=== PATIENT | female | born 1975 | race Caucasian/White ===

== ENCOUNTER 2024-04-08 14:50 | Outpatient (AMB) | payer BC, SELFPAY ==
--- NOTE | 2024-04-08 15:01 | MHC.OFFVIS ---
Vital Signs 04/08/24 15:03 Height 5 ft 3 in Weight 143 lb 4.807 oz BMI 25.4 BP 110/70 Blood Pressure Location Rt brachial Position Sitting Pulse 56 Pulse Source Pulse Oximeter Pulse Oximetry (%) 99 Oxygen Delivery Method Room Air Intake Visit Reasons: + FRANTZ/CM Intake Note: Patient present today for +FARNTZ/CM follow up visit. Resident Care Manager Rn Required: No Accompanied by: Self / Same As Patient Allergies No Known Allergies Allergy (Verified 04/08/24 15:07) Medication List - Last Reconciled 04/08/24 by Giulia Taylor MD naproxen sodium (Aleve) 220 mg PO BID PRN HPI Comments Details: This is a 48-year-old female who presents for evaluation of psoriatic arthritis. She used to follow-up at the [facility]. Patient states that she was diagnosed with psoriasis in childhood. She states that she treats it with regular tanning about 4 months a year. This has worked out pretty well for her. She continues to get intermittent flare-ups of psoriasis on her scalp and ears but overall has been very well controlled. She was diagnosed with psoriatic arthritis around 2018. Usually affecting her fingers and toes. He was started on methotrexate for approximately 3 months, was not helpful. She would also get intermittent courses of prednisone. She was tried again on methotrexate 06/2023 for 2 months without much relief. She also took hydroxychloroquine time in 2021 for about a month without much improvement. Her pains are located in her fingers and toes. She saw a spar machine operator helper a few months ago and had left 5th toe injection which did provide relief. Currently she takes Aleve twice a day. She is unaware of any family history of an autoimmune rheumatic disease. She denies any weight loss or fevers recently. Denies any history of cancer. Denies any history of DVT/PE. [facility] Medical History (Updated 04/08/24 @ 16:18 by Giulia Taylor MD) FRANTZ positive Psoriasis Lumbar degenerative disc disease Migraines Anxiety and depression Psoriatic arthritis Pain in joint, multiple sites Family History Mother Dementia Father Heart attack Social History Current occupational status: employed Current occupation: freelance photographer [employer] Female Reproductive History Menstrual Total pregnancies: 3 Number of Living Children: 3 Ab induced: 0 Ab spontaneous: 0 Review of Systems Const Denies fever(s), Denies weight gain and Denies weight loss ENT Denies neck pain Resp Reports no additional complaints Musc Denies back pain, Reports deformity, Reports arthralgias, Reports joint swelling, Denies neck pain and Reports stiffness Physical Exam Vital Signs: Last Vital Signs Pulse 56 04/08/24 15:03 BP 110/70 04/08/24 15:03 Pulse Ox 99 04/08/24 15:03 Oxygen Delivery Method Room Air 04/08/24 15:03 BMI result Body Mass Index 25.4 Const General: cooperative, healthy appearing, comfortable and no acute distress Nutritional Appearance: average body habitus Orientation/consciousness: patient oriented x3 Limitations: no limitations HEENT Head: Yes normocephalic and Yes atraumatic Mouth: moist mucous membranes Resp Effort & Inspection: normal respiratory effort and able to speak in complete sentences Auscultation: clear to auscultation bilaterally Cardio Rate: regular rate Rhythm: regular rhythm Skin Other: Faint psoriasis scaly plaques inside the right ear Neuro General: patient oriented x3 Extrem Other: Left 2nd finger dactylitis, tender to palpation especially at the DIP Right 4th finger significant PIP swelling and tenderness Right big toe dactylitis, tender to palpation Left 5th toe dactylitis tender to palpation Negative straight leg raise test bilaterally Negative Fabere test bilaterally No active synovitis otherwise Results Reviewed Results Reviewed: Labs 07/2023? Hepatitis-B core antibody negative? Hepatitis-B surface antibody positive (immune) Hepatitis-B surface antigen negative? Hepatitis-C antibody negative Psoriatic arthropathy MTX 2018 H CQ 2021 Assessment & Plan Assessment & Plan (1) Psoriatic arthritis: Comment: 2017 MTX 2018 for 3 months ineffective again 06/2023 2 months ineffective HCQ 2021 about 1 month ineffective Code(s): L40.50 - Arthropathic psoriasis, unspecified Category: Medical Plan: This is a 48-year-old female with psoriatic arthritis who presents as a new patient. She used to follow-up at the [facility]. Patient failed methotrexate and hydroxychloroquine in the past. She is currently on naproxen 220 mg Twice daily and continues to have significant synovitis multiple swollen joints with dactylitis and sausage digits. Need to add DMARDs. Discussed risks and benefits of TNF inhibitors. Patient agreed to proceed. Will start prior authorization for Humira Check labs and x-rays of involved joints today Follow-up in 3 months (2) Adalimumab (Humira) long-term use: Code(s): Z79.620 - jail (current) use of immunosuppressive biologic Category: Medical Plan: Side effects of Humira were discussed with the patient in detail including increased risk of infection, demyelinating disease, reactivation of latent TB, possible increased risk of solid and skin tumors. Patient fully aware. Advised patient to seek medical care PAUL if patient has an infection and advised patient to stop the medication until the infection is resolved. (3) FRANTZ positive: Code(s): R76.8 - Other specified abnormal immunological findings in serum Category: Medical Plan: Check further sub serologies (4) Psoriasis: Comment: childhood Code(s): L40.9 - Psoriasis, unspecified Category: Medical Plan: Only minimal patches on exam. Treatment for psoriatic arthritis should help her psoriasis as well Plan I spent 60 minutes reviewing patient's chart, evaluating patient, ordering diagnostic workup, counseling patient and documenting in the chart Orders: Orders Complete Blood Count Auto Diff Today L40.50 - Arthropathic psoriasis, unspecified Comprehensive Met. Panel Today L40.50 - Arthropathic psoriasis, unspecified C Reactive Protein Today L40.50 - Arthropathic psoriasis, unspecified Erythrocyte Sedimentation Rate Today L40.50 - Arthropathic psoriasis, unspecified Rheumatoid Factor Today M25.50 - Pain in unspecified joint Anti DNA DS Antibody Today M32.9 - Systemic lupus erythematosus, unspecified DNA Double Stranded-Crithidia Today M32.9 - Systemic lupus erythematosus, unspecified UA w Microscopic Today M32.9 - Systemic lupus erythematosus, unspecified XR foot RT min 3V Today L40.50 - Arthropathic psoriasis, unspecified XR foot LT min 3V Today L40.50 - Arthropathic psoriasis, unspecified Hepatitis A,B,C Profile Today Z11.59 - Encounter for screening for other viral diseases T Spot TB Today Z11.7 - Encounter for testing for latent tuberculosis infection HLA B27 Today M45.9 - Ankylosing spondylitis of unspecified sites in spine Cyclic Citrullinated Peptide Today M25.50 - Pain in unspecified joint Anti Extractable Nuclear Ag Today M32.9 - Systemic lupus erythematosus, unspecified Complement C3 Today M32.9 - Systemic lupus erythematosus, unspecified Complement C4 Today M32.9 - Systemic lupus erythematosus, unspecified Protein Creatinine Ratio, Ur Today M32.9 - Systemic lupus erythematosus, unspecified Sjogren's Antibodies Today M32.9 - Systemic lupus erythematosus, unspecified XR hand wrist LT Today L40.50 - Arthropathic psoriasis, unspecified XR hand wrist RT Today L40.50 - Arthropathic psoriasis, unspecified Coding Level of Care Code New Pt Level 5 (00029) Diagnoses Psoriatic arthritis L40.50 Adalimumab (Humira) long-term use Z79.620 FRANTZ positive R76.8 Psoriasis L40.9
[2024-04-08 15:03] VITALS: BP 110/70; PULSE 56; O2SAT 99; BMI 25.4
== END 2024-04-08 15:25 ==
PROVIDERS: PCP Internal Medicine; Visit Provider Student in an Organized Health Care Education/Training Program
DX: L40.50 Arthropathic psoriasis, unspecified (principal); Z79.620 Long term (current) use of immunosuppressive biologic; R76.8 Other specified abnormal immunological findings in serum; L40.9 Psoriasis, unspecified
CPT/HCPCS: 99205

== ENCOUNTER 2024-04-08 14:50 | Outpatient (REF) | payer BC, SELFPAY ==
--- NOTE | ~2024-04-08 | XR_ITS ---
EXAMINATION: X-RAY BILATERAL HANDS AND WRISTS X-RAY BILATERAL FEET CLINICAL INFORMATION: Arthropathic psoriasis unspecified. COMPARISON: None. TECHNIQUE: 3 views of each foot. 4 views of each hand/wrist. FINDINGS: Right foot: Tiny plantar calcaneal spur. Mild degenerative changes in the first metatarsophalangeal joint with joint space narrowing and hypertrophic change. Advanced degenerative changes in the right fifth metatarsophalangeal joint with joint space narrowing and hypertrophic change. Left foot: Tiny plantar calcaneal spur. Mild degenerative changes in the first metatarsophalangeal joint with joint space narrowing and hypertrophic change. Advanced degenerative changes in the left fifth toe PIP joint with destructive ulceration along the distal lateral aspect of the proximal phalanx extending to the level of the joint space, narrowing of the joint space and adjacent soft tissue swelling. Moderate degenerative changes with joint space and hypertrophic change in the fifth toe metatarsophalangeal joint. Right hand/wrist: Moderate degenerative changes in the first carpometacarpal joint with joint space narrowing and hypertrophic change. Bone mineralization is normal. Mild degenerative changes in the first metacarpophalangeal joint with joint space narrowing and hypertrophic change. Left hand/wrist: Moderate degenerative changes in the first carpometacarpal joint with joint space narrowing and hypertrophic change. Bone mineralization is normal. Mild degenerative changes in the first metacarpophalangeal joint with joint space narrowing and hypertrophic change. There are lucencies in the left first metacarpal head with cortical erosions/lucencies along the radial aspect of the first metacarpal head. XR/XR foot RT min 3V IMPRESSION: 1. Destructive ulceration along the distal lateral aspect of the proximal phalanx of the left fifth toe with adjacent soft tissue swelling. 2. Moderate degenerative changes in the bilateral first carpometacarpal joints. 3. Advanced degenerative changes in the bilateral fifth metatarsophalangeal joints. 4. Lucencies in the left first metacarpal head with cortical erosions/lucencies along the radial aspect of the first metacarpal head.
--- NOTE | ~2024-04-08 | XR_ITS ---
EXAMINATION: X-RAY BILATERAL HANDS AND WRISTS X-RAY BILATERAL FEET CLINICAL INFORMATION: Arthropathic psoriasis unspecified. COMPARISON: None. TECHNIQUE: 3 views of each foot. 4 views of each hand/wrist. FINDINGS: Right foot: Tiny plantar calcaneal spur. Mild degenerative changes in the first metatarsophalangeal joint with joint space narrowing and hypertrophic change. Advanced degenerative changes in the right fifth metatarsophalangeal joint with joint space narrowing and hypertrophic change. Left foot: Tiny plantar calcaneal spur. Mild degenerative changes in the first metatarsophalangeal joint with joint space narrowing and hypertrophic change. Advanced degenerative changes in the left fifth toe PIP joint with destructive ulceration along the distal lateral aspect of the proximal phalanx extending to the level of the joint space, narrowing of the joint space and adjacent soft tissue swelling. Moderate degenerative changes with joint space and hypertrophic change in the fifth toe metatarsophalangeal joint. Right hand/wrist: Moderate degenerative changes in the first carpometacarpal joint with joint space narrowing and hypertrophic change. Bone mineralization is normal. Mild degenerative changes in the first metacarpophalangeal joint with joint space narrowing and hypertrophic change. Left hand/wrist: Moderate degenerative changes in the first carpometacarpal joint with joint space narrowing and hypertrophic change. Bone mineralization is normal. Mild degenerative changes in the first metacarpophalangeal joint with joint space narrowing and hypertrophic change. There are lucencies in the left first metacarpal head with cortical erosions/lucencies along the radial aspect of the first metacarpal head. XR/XR hand wrist LT IMPRESSION: 1. Destructive ulceration along the distal lateral aspect of the proximal phalanx of the left fifth toe with adjacent soft tissue swelling. 2. Moderate degenerative changes in the bilateral first carpometacarpal joints. 3. Advanced degenerative changes in the bilateral fifth metatarsophalangeal joints. 4. Lucencies in the left first metacarpal head with cortical erosions/lucencies along the radial aspect of the first metacarpal head.
--- NOTE | ~2024-04-08 | XR_ITS ---
EXAMINATION: X-RAY BILATERAL HANDS AND WRISTS X-RAY BILATERAL FEET CLINICAL INFORMATION: Arthropathic psoriasis unspecified. COMPARISON: None. TECHNIQUE: 3 views of each foot. 4 views of each hand/wrist. FINDINGS: Right foot: Tiny plantar calcaneal spur. Mild degenerative changes in the first metatarsophalangeal joint with joint space narrowing and hypertrophic change. Advanced degenerative changes in the right fifth metatarsophalangeal joint with joint space narrowing and hypertrophic change. Left foot: Tiny plantar calcaneal spur. Mild degenerative changes in the first metatarsophalangeal joint with joint space narrowing and hypertrophic change. Advanced degenerative changes in the left fifth toe PIP joint with destructive ulceration along the distal lateral aspect of the proximal phalanx extending to the level of the joint space, narrowing of the joint space and adjacent soft tissue swelling. Moderate degenerative changes with joint space and hypertrophic change in the fifth toe metatarsophalangeal joint. Right hand/wrist: Moderate degenerative changes in the first carpometacarpal joint with joint space narrowing and hypertrophic change. Bone mineralization is normal. Mild degenerative changes in the first metacarpophalangeal joint with joint space narrowing and hypertrophic change. Left hand/wrist: Moderate degenerative changes in the first carpometacarpal joint with joint space narrowing and hypertrophic change. Bone mineralization is normal. Mild degenerative changes in the first metacarpophalangeal joint with joint space narrowing and hypertrophic change. There are lucencies in the left first metacarpal head with cortical erosions/lucencies along the radial aspect of the first metacarpal head. XR/XR foot LT min 3V IMPRESSION: 1. Destructive ulceration along the distal lateral aspect of the proximal phalanx of the left fifth toe with adjacent soft tissue swelling. 2. Moderate degenerative changes in the bilateral first carpometacarpal joints. 3. Advanced degenerative changes in the bilateral fifth metatarsophalangeal joints. 4. Lucencies in the left first metacarpal head with cortical erosions/lucencies along the radial aspect of the first metacarpal head.
--- NOTE | ~2024-04-08 | XR_ITS ---
EXAMINATION: X-RAY BILATERAL HANDS AND WRISTS X-RAY BILATERAL FEET CLINICAL INFORMATION: Arthropathic psoriasis unspecified. COMPARISON: None. TECHNIQUE: 3 views of each foot. 4 views of each hand/wrist. FINDINGS: Right foot: Tiny plantar calcaneal spur. Mild degenerative changes in the first metatarsophalangeal joint with joint space narrowing and hypertrophic change. Advanced degenerative changes in the right fifth metatarsophalangeal joint with joint space narrowing and hypertrophic change. Left foot: Tiny plantar calcaneal spur. Mild degenerative changes in the first metatarsophalangeal joint with joint space narrowing and hypertrophic change. Advanced degenerative changes in the left fifth toe PIP joint with destructive ulceration along the distal lateral aspect of the proximal phalanx extending to the level of the joint space, narrowing of the joint space and adjacent soft tissue swelling. Moderate degenerative changes with joint space and hypertrophic change in the fifth toe metatarsophalangeal joint. Right hand/wrist: Moderate degenerative changes in the first carpometacarpal joint with joint space narrowing and hypertrophic change. Bone mineralization is normal. Mild degenerative changes in the first metacarpophalangeal joint with joint space narrowing and hypertrophic change. Left hand/wrist: Moderate degenerative changes in the first carpometacarpal joint with joint space narrowing and hypertrophic change. Bone mineralization is normal. Mild degenerative changes in the first metacarpophalangeal joint with joint space narrowing and hypertrophic change. There are lucencies in the left first metacarpal head with cortical erosions/lucencies along the radial aspect of the first metacarpal head. XR/XR hand wrist RT IMPRESSION: 1. Destructive ulceration along the distal lateral aspect of the proximal phalanx of the left fifth toe with adjacent soft tissue swelling. 2. Moderate degenerative changes in the bilateral first carpometacarpal joints. 3. Advanced degenerative changes in the bilateral fifth metatarsophalangeal joints. 4. Lucencies in the left first metacarpal head with cortical erosions/lucencies along the radial aspect of the first metacarpal head.
[2024-04-08 16:21] LABS: MANUAL DIFF FLAG NO
[2024-04-08 17:42] LABS: Basophils Absolute Auto 0.1 X10*3/uL (0.0-0.2); Basophils Percent Auto 0.8 % (0-2); Eosinophils Absolute Auto 0.1 X10*3/uL (0.0-0.4); Eosinophils Percent Auto 2.1 % (0-4); Hematocrit 41.2 % (37.0-47.0); Hemoglobin 14.2 g/dl (12.0-16.0); Imm Gran Abs Auto 0.01 X10*3/uL (0.00-0.03); Imm Gran Pct Auto 0.2 % (0.0-0.4); Lymphocytes Absolute Auto 1.6 X10*3/uL (1.2-4.9); Lymphocytes Percent Auto 26.1 % (20-40); Mean Corpuscular HGB Conc 34.5 g/dl (31.0-35.0); Mean Corpuscular Hemoglobin 31.5 pg (27.0-33.0); Mean Corpuscular Volume 91.4 fL (80.0-98.0); Mean Platelet Volume 9.9 fL (9.4-12.3); Monocytes Absolute Auto 0.4 X10*3/uL (0.1-1.2); Monocytes Percent Auto 6.5 % (2-11); Neutrophils Percent Auto 64.3 % (45-73); Platelet Count 279 X10*3/uL (160-400); Red Blood Count 4.51 X10*6/uL (4.20-5.50); Red Cell Distribution Width 13.1 % (11.0-16.0); White Blood Count 6.2 X10*3/uL (4.8-10.8)
[2024-04-08 17:50] LABS: Appearance Urine Clear; Color Urine Yellow; Glucose Urine UA Negative (Negative); Leukocyte Esterase Urine Negative (Negative); Nitrite Urine Negative (Negative); PH 7.5 (5.0-9.0); Urine Blood Negative (Negative); Urine Ketones Negative (Negative); Urine Protein Negative (Neg-Trace)
[2024-04-08 18:04] LABS: Bacteria Urine 1+ (None Seen); Hyaline Casts Urine 0-2 /LPF (0-2); RBC Urine 0-2 /HPF (0-2); WBC Urine 0-5 /HPF (0-5)
[2024-04-08 18:15] LABS: Alanine Aminotransferase 7 U/L (0-31); Albumin Level 4.5 g/dL (3.5-5.0); Alkaline Phosphatase 55 U/L (39-117); Anion Gap 12 (12-20); Aspartate Amino Transferase 17 U/L (5-31); Bilirubin Total 0.3 mg/dL (0.0-1.0); Blood Urea Nitrogen 20 mg/dL (9-16); C Reactive Protein 0.25 mg/dL (< or = 0.50); Calcium 9.6 mg/dL (8.4-10.2); Carbon Dioxide 24 mmol/L (22-29); Chloride 108 mmol/L (96-108); Estimated Glomerular Filt Rate > 60; Glucose Random 85 mg/dL (60-115); Potassium 3.9 mmol/L (3.3-5.1); Sodium 140 mmol/L (135-145); Total Protein 7.3 g/dL (6.5-8.0)
[2024-04-08 18:17] LABS: Erythrocyte Sedimentation Rate 5 MM/HR (0-20)
[2024-04-08 18:20] LABS: Rheumatoid Factor < 13.0 IU/mL (<15.0)
[2024-04-08 18:31] LABS: Creatinine Urine 110.59 mg/dL; Total Protein Urine Random < 7 mg/dL (<12)
[2024-04-09 10:08] LABS: Complement C3 108 mg/dL (83-193)
[2024-04-09 10:10] LABS: HBS Num1 193.48 mIU/mL (0-7.99); HBsAGNum1 0.33 S/CO (0.00-0.99); Hepatitis A Antibody IgM 0.11 Index (0-0.79); Hepatitis B Core Antibody Nonreactive (Nonreactive); Hepatitis B Surface Antigen Negative (Negative); ~HepC Num1 0.06 S/CO (0.00-0.79); ~Hepatitis A Antibody IgM Nonreactive (Nonreactive); ~Hepatitis B Surface Antibody REACTIVE (Nonreactive); ~Hepatitis C Antibody Nonreactive (Nonreactive)
[2024-04-09 20:19] LABS: Anti DNA DS Antibody <1 IU/mL; Antibody to SS-A Antigen >8.0 POS AI (<1.0 NEG); Antibody to SS-B Antigen <1.0 NEG AI (<1.0 NEG); SM/Ribonucleoprotein Ab <1.0 NEG AI (<1.0 NEG); Smith Protein <1.0 NEG AI (<1.0 NEG)
[2024-04-10 15:48] LABS: Cyclic Citrullinated Peptide <16 UNITS
[2024-04-11 09:58] LABS: TS Negative Control Passed; TS Panel A 0; TS Panel B 0; TS Positive Control Passed; TSpotTB Negative (Negative)
[2024-04-13 17:23] LABS: HLA B27 Negative (Negative)
[2024-04-14 15:09] LABS: DNAds, Crithidia Antibody Negative (Negative)
== END 2024-04-08 14:51 | disposition home or self-care (01) ==
LOC: HO.XRAY 14:50
PROVIDERS: PCP Internal Medicine; Visit Provider Student in an Organized Health Care Education/Training Program
DX: Z11.59 Encounter for screening for other viral diseases (principal); Z11.7 Encounter for testing for latent tuberculosis infection; L40.50 Arthropathic psoriasis, unspecified; M32.9 Systemic lupus erythematosus, unspecified; M45.9 Ankylosing spondylitis of unspecified sites in spine; R76.8 Other specified abnormal immunological findings in serum; L40.9 Psoriasis, unspecified; M25.50 Pain in unspecified joint; Z79.620 Long term (current) use of immunosuppressive biologic; Z72.89 Other problems related to lifestyle
CPT/HCPCS: 36415; 73110; 73130; 73630; 80053; 81001; 82570; 84156; 85025; 85652; 86140; 86160; 86200; 86225; 86235; 86255; 86431; 86481; 86704; 86706; 86709; 86803; 86812; 87340

== ENCOUNTER 2024-07-09 12:40 | Outpatient (AMB) | payer BC, SELFPAY ==
--- NOTE | 2024-07-09 12:41 | A.OFFVIS_ITS ---
Vital Signs 07/09/24 12:46 Height 5 ft 3 in Weight 145 lb 11.609 oz BMI 25.8 BP 112/62 Blood Pressure Location Rt brachial Position Sitting Pulse 72 Pulse Source Pulse Oximeter Pulse Oximetry (%) 99 Oxygen Delivery Method Room Air Intake Visit Reasons: PsA Intake Note: Patient presents for PsA. Allergies No Known Allergies Allergy (Verified 07/09/24 12:45) Medication List - Last Reconciled 07/09/24 by Giulia Taylor MD Humira(CF) Pen (adalimumab) inject one - 40 mg/0.4 mL pen every 2 weeks subcut NS HPI Comments Details: 49-year-old female with psoriatic arthritis returns for follow-up. She has been using the Humira regularly for the last 3 months with significant improvement. Pains in her hands and feet is much better. Except for her index finger which seems to be resistant. Initial history: This is a 48-year-old female who presents for evaluation of psoriatic arthritis. She used to follow-up at [facility]. Patient states that she was diagnosed with psoriasis in childhood. She states that she treats it with regular tanning about 4 months a year. This has worked out pretty well for her. She continues to get intermittent flare-ups of psoriasis on her scalp and ears but overall has been very well controlled. She was diagnosed with psoriatic arthritis around 2018. Usually affecting her fingers and toes. He was started on methotrexate for approximately 3 months, was not helpful. She would also get intermittent courses of prednisone. She was tried again on methotrexate 06/2023 for 2 months without much relief. She also took hydroxychloroquine time in 2021 for about a month without much improvement. Her pains are located in her fingers and toes. She saw a reporting process consultant a few months ago and had left 5th toe injection which did provide relief. Currently she takes Aleve twice a day. She is unaware of any family history of an autoimmune rheumatic disease. She denies any weight loss or fevers recently. Denies any history of cancer. Denies any history of DVT/PE. [facility] Medical History FRANTZ positive Psoriasis Lumbar degenerative disc disease Migraines Anxiety and depression Psoriatic arthritis Pain in joint, multiple sites Family History Mother Dementia Father Heart attack Social History Current occupational status: employed Current occupation: multimedia specialist [employer] Female Reproductive History Menstrual Total pregnancies: 3 Number of Living Children: 3 Ab induced: 0 Ab spontaneous: 0 Review of Systems Const Denies fever(s), Denies weight gain and Denies weight loss ENT Denies neck pain Resp Reports no additional complaints Musc Denies back pain, Reports arthralgias, Reports joint swelling, Denies neck pain and Reports stiffness Physical Exam Vital Signs: Last Vital Signs Pulse 72 07/09/24 12:46 BP 112/62 07/09/24 12:46 Pulse Ox 99 07/09/24 12:46 Oxygen Delivery Method Room Air 07/09/24 12:46 BMI result Body Mass Index 25.8 Const General: cooperative, healthy appearing, comfortable and no acute distress Nutritional Appearance: average body habitus Orientation/consciousness: patient oriented x3 Limitations: no limitations HEENT Head: Yes normocephalic and Yes atraumatic Mouth: moist mucous membranes Resp Effort & Inspection: normal respiratory effort and able to speak in complete sentences Cardio Rate: regular rate Rhythm: regular rhythm Skin Other: Psoriasis patches inside and behind ears resolved Neuro General: patient oriented x3 Extrem Other: Synovitis significantly improved. She continues to have some mild enlargement of the right 4th PIP but synovitis essentially resolved Dactylitis of both feet resolve She continues to have dactylitis of left index Office Procedures Joint Injection/Aspiration Joint Injection/Aspiration Details: Left 2nd finger PIP Injected: 10 mg of and Kenalog Approach Used: other Procedure: The patient tolerated the procedure well Coding Details: With patient's consent, The area over the dorsum of medial aspect of left index was prepped with ChloraPrep then using a 25 gauge needle 10 mg of Kenalog was injected into the PIP joint space. The patient tolerated the procedure well with no immediate adverse events - Small Joint Procedure code (CPT) selection complete Results Reviewed Results Reviewed: Labs 07/2023? Hepatitis-B core antibody negative? Hepatitis-B surface antibody positive (immune) Hepatitis-B surface antigen negative? Hepatitis-C antibody negative Psoriatic arthropathy MTX 2018 H CQ 2021 Assessment & Plan Assessment & Plan (1) Psoriatic arthritis: Comment: 2017 MTX 2017 for 3 months ineffective again 06/2023 2 months ineffective HCQ 2021 about 1 month ineffective Humira 03/2024 effective Code(s): L40.50 - Arthropathic psoriasis, unspecified Category: Medical Plan: This is a 49-year-old female with psoriatic arthritis who presents for follow- up. Doing much better overall on Humira 40 mg every other week. Continues to have active dactylitis of left index finger. With patient's consent, left index PIP was injected with Kenalog today. Continue Humira 40 mg every other week Labs before next visit in 3 months (2) Adalimumab (Humira) long-term use: Code(s): Z79.620 - exterminator termite (current) use of immunosuppressive biologic Category: Medical Plan: Side effects of Humira were discussed with the patient in detail including increased risk of infection, demyelinating disease, reactivation of latent TB, possible increased risk of solid and skin tumors. Patient fully aware. Advised patient to seek medical care PAUL if patient has an infection and advised patient to stop the medication until the infection is resolved. (3) FRANTZ positive: Code(s): R76.8 - Other specified abnormal immunological findings in serum Category: Medical Plan: Positive SSA antibody. No significant symptoms suggestive of Sjogren's. We will continue to monitor patient for the development of overlap with other connective tissue diseases (4) Psoriasis: Comment: childhood Code(s): L40.9 - Psoriasis, unspecified Category: Medical Plan: Resolved with Humira Plan I spent 26 minutes reviewing patient's chart, evaluating patient, ordering diagnostic workup, counseling patient and documenting in the chart Orders: Orders Complete Blood Count Auto Diff 3 Months L40.50 - Arthropathic psoriasis, unspecified Comprehensive Met. Panel 3 Months L40.50 - Arthropathic psoriasis, unspecified C Reactive Protein 3 Months L40.50 - Arthropathic psoriasis, unspecified AMB Joint Injection/Aspiration Today L40.50 - Arthropathic psoriasis, unspecified Erythrocyte Sedimentation Rate 3 Months L40.50 - Arthropathic psoriasis, uns pecified Coding Level of Care Code Est Pt Level 5 (44624) Diagnoses Psoriatic arthritis L40.50 Adalimumab (Humira) long-term use Z79.620 FRANTZ positive R76.8 Psoriasis L40.9 CPT Codes Coding - - Small joint: - Small Joint ([id number])
[2024-07-09 12:46] VITALS: BP 112/62; PULSE 72; O2SAT 99; BMI 25.8
== END 2024-07-09 13:11 | disposition home or self-care (01) ==
PROVIDERS: PCP Internal Medicine; Visit Provider Student in an Organized Health Care Education/Training Program
DX: L40.50 Arthropathic psoriasis, unspecified (principal); Z79.620 Long term (current) use of immunosuppressive biologic; R76.8 Other specified abnormal immunological findings in serum; L40.9 Psoriasis, unspecified; R22.32 Localized swelling, mass and lump, left upper limb
CPT/HCPCS: 20600; 99214

== ENCOUNTER → 2024-07-09 12:40 | Outpatient (BNVA) | payer BC, SELFPAY | PROVIDERS: PCP Internal Medicine; Visit Provider Student in an Organized Health Care Education/Training Program | DX: L40.50 Arthropathic psoriasis, unspecified (principal); L40.9 Psoriasis, unspecified; R76.8 Other specified abnormal immunological findings in serum; Z79.620 Long term (current) use of immunosuppressive biologic | CPT/HCPCS: 20600; J3301 ==

== ENCOUNTER 2024-12-02 13:41 | Outpatient (REF) | payer BC, SELFPAY ==
[2024-12-02 13:54] LABS: MANUAL DIFF FLAG NO
--- OUTSIDE RECORDS SUMMARY | 2024-12-02 14:03 | XMS_ITS ---
Author Organization [facility] Address [address] [place] [address] Care Team Providers Care Education Assistant Name Role Phone Susie CHADWICK, Ronaldo Primary Care Provider Josefina Brandon [phone] REASON FOR VISIT r/s appt 09/17/23 Encounters Encounter Location Date Provider Diagnosis [facility] [address] [place] [address] 08/28/2023 Josefina Hitchcock Plan Of Treatment No Information Progress Notes * HANG, AmylynnDOB: [birth year] (48 yo F)Acc No.[id number]:08/28/2023 Patient:?Heavenlon, Amylynn :1975???Age:48 Y???Sex:Female Address:[address] [facility] [place] [address] * true * Date:? Generated for Printi ng/Faxing/eTransmitting on:?12/02/2024 02:03 PM EST
--- OUTSIDE RECORDS SUMMARY | 2024-12-02 14:04 | XMS_ITS | Patient Health Record ---
Author Organization [facility] Address [address] [facility] [place] [address] Care Team Providers Care Lean Sensei Name Role Phone Susie CHADWICK, Ronaldo Primary Care Provider Josefina Brandon Unavailable [phone] Allergies No Known Allergies Reason For Referral No Information Medications Medication SIG (Take, Route, Fr equency, Duration) Notes Start Date End Date Status Meloxicam 15 MG 1 tablet Orally Once a day for 30 days 06/13/2023 Active Social History Tobacco Use: Social History Observation Description Date Details (start date - stop date) Never Smoker NA - NA Tobacco Use/Smoking Question Answer Notes Are you a: nonsmoker Alcohol Screen Question Answer Notes Did you have a drink containing alcohol in the p ast year? No Points 0 Interpretation Negative Tobacco use other than smoking: Question Answer Notes Are you an other tobacco user? No Problems Problem Type SNOMED Code ICD Code Onset Dates Problem Status W/U Status Risk Notes Problem Acquired hallux valgus (98269577) Hallux valgus (acquired), right foot (M20.11) Active confirmed Problem [id number] Psoriatic arthritis (L40.50) Active confirmed Plan Of Treatment Pending Test Test Name Order Date , [id number]/INJECT, JOINT/BURSA 0 07/10/2023 Insurance Providers Payer Name Payer Address Payer Phone Subscriber Number Group Number Insured Name Patient Relationship to Insured Coverage Start Date Coverage End Date [employer] [address] [place] [address] [id number] Heavenchsig Amylynn Self - patient is the insured Medical (General) History Medical History History ICD Code Arthritis Psoriasis Surgical History Surgery Date(Month/Year) kidney stones 2019
--- OUTSIDE RECORDS SUMMARY | 2024-12-02 14:04 | XMS_ITS ---
Author Organization [facility] Address [address] [facility] [address] Care Team Providers Care Dry Kiln Operator Helper Name Role Phone Susie CHADWICK, Ronaldo Primary Care Provider Josefina Brandon [phone] Encounters Encounter Location Date Provider Diagnosis [address] [place] [address] 11/12/2023 Josefina Hitchcock Plan Of Treatment No Information Progress Notes * HANG LiviernDOB: [birth year] (49 yo F)Acc No.[id number]:11/12/2023 Progress Notes Patient:?Livier MAURICIOn Provider:Cheyenne Hitchcock DPM :1975???Age:48 Y???Sex:Female D ate:11/12/2023 [address] [place] Pcp:Ronaldo Richards MD Subjective: * Chief Complaints: * ??? * Medical History:? Objective: * Vitals:? Assessment: Plan: * Treatment: * Images: * The named appointment provid er may or may not be the originator of this progress note, and it is not deemed complete until electronically signed by the appointment provider. Sign off status: Pending * Provider:Cheyenne Hitchcock DPM Date:?2023 Generated for Printi ng/Faxing/eTransmitting on:?12/02/2024 02:03 PM EST
--- OUTSIDE RECORDS SUMMARY | 2024-12-02 14:04 | XMS_ITS ---
Author Organization [facility] Address [address] [facility] [place] [address] Care Team Providers Care Fishing Vessel Mate Name Role Phone Susie CHADWICK, Ronaldo Primary Care Provider Josefina Brandon [phone] Encounters Encounter Location Date Provider Diagnosis [address] [place] [address] 09/17/2023 Josefina Hitchcock Plan Of Treatment No Information Progress Notes * HANG LiviernDOB: [birth year] (49 yo F)Acc No.[id number]:09/17/2023 Progress Notes Patient:?Jet MAURICIO Provider:Cheyenne Hitchcock DPM :1975???Age:48 Y???Sex:Female D ate:09/17/2023 [address] [place] Pcp:Ronaldo Richards MD Subjective: * Chief Complaints: * ??? * Medical History:? Objective: * Vitals:? Assessment: Plan: * Treatment: * Images: * The named appointment provid er may or may not be the originator of this progress note, and it is not deemed complete until electronically signed by the appointment provider. Sign off status: Pending * Provider:Cheyenne Hitchcock DPM Date:?2022 Generated for Printi ng/Faxing/eTransmitting on:?12/02/2024 02:03 PM EST
[2024-12-02 14:20] LABS: Basophils Percent Auto 0.7 % (0-2); Eosinophils Absolute Auto 0.1 X10*3/uL (0.0-0.4); Eosinophils Percent Auto 1.3 % (0-4); Hematocrit 42.7 % (37.0-47.0); Imm Gran Abs Auto 0.01 X10*3/uL (0.00-0.03); Imm Gran Pct Auto 0.2 % (0.0-0.4); Lymphocytes Absolute Auto 1.7 X10*3/uL (1.2-4.9); Mean Corpuscular HGB Conc 35.1 g/dl (31.0-35.0); Mean Corpuscular Hemoglobin 32.5 pg (27.0-33.0); Mean Corpuscular Volume 92.4 fL (80.0-98.0); Mean Platelet Volume 9.5 fL (9.4-12.3); Monocytes Absolute Auto 0.4 X10*3/uL (0.1-1.2); Neutrophils Absolute Auto 3.3 x10*3/uL (2.0-8.3); Neutrophils Percent Auto 59.8 % (45-73); Platelet Count 288 X10*3/uL (160-400); Red Blood Count 4.62 X10*6/uL (4.20-5.50); Red Cell Distribution Width 12.8 % (11.0-16.0); White Blood Count 5.6 X10*3/uL (4.8-10.8)
[2024-12-02 15:00] LABS: Alanine Aminotransferase 10 U/L (0-31); Albumin Level 4.5 g/dL (3.5-5.0); Anion Gap 11 (12-20); Aspartate Amino Transferase 24 U/L (5-31); Bilirubin Total 0.4 mg/dL (0.0-1.0); Blood Urea Nitrogen 14 mg/dL (9-16); C Reactive Protein < 0.10 mg/dL (< or = 0.50); Calcium 9.6 mg/dL (8.4-10.2); Carbon Dioxide 26 mmol/L (22-29); Chloride 107 mmol/L (96-108); Estimated Glomerular Filt Rate > 60; Glucose Random 99 mg/dL (60-115); Potassium 4.1 mmol/L (3.3-5.1); Sodium 140 mmol/L (135-145); Total Protein 7.8 g/dL (6.5-8.0)
[2024-12-02 15:05] LABS: Erythrocyte Sedimentation Rate 2 MM/HR (0-20)
[2024-12-02 15:29] LABS: Alkaline Phosphatase 55 U/L (39-117)
[2024-12-03 08:18] LABS: HBS Num1 270.89 mIU/mL (0-7.99); HBc Num1 0.11 S/CO (0.00-0.79); HBsAGNum1 0.28 S/CO (0.00-0.99); HIV AB/AG Nonreactive (Nonreactive); HIV Num 1 0.07 S/CO (0.00-0.99); Hepatitis A Antibody IgM 0.16 Index (0-0.79); Hepatitis B Core Antibody Nonreactive (Nonreactive); Hepatitis B Surface Antigen Negative (Negative); ~HepC Num1 0.08 S/CO (0.00-0.79); ~Hepatitis A Antibody IgM Nonreactive (Nonreactive); ~Hepatitis B Surface Antibody REACTIVE (Nonreactive); ~Hepatitis C Antibody Nonreactive (Nonreactive)
[2024-12-05 11:18] LABS: TS Negative Control Passed; TS Panel A 0; TS Panel B 0; TS Positive Control Passed; TSpotTB Negative (Negative)
== END 2024-12-02 13:42 | disposition home or self-care (01) ==
LOC: HO.LAB 13:41
PROVIDERS: PCP Internal Medicine; Visit Provider Student in an Organized Health Care Education/Training Program
DX: L40.50 Arthropathic psoriasis, unspecified (principal); Z79.620 Long term (current) use of immunosuppressive biologic
CPT/HCPCS: 36415; 80053; 85025; 85652; 86140; 86481; 86704; 86706; 86709; 86803; 87340; 87389

== ENCOUNTER 2025-04-29 15:11 | Outpatient (REF) | payer BC, SELFPAY ==
--- OUTSIDE RECORDS SUMMARY | 2023-11-12 06:00 | XMS_ITS ---
Author Organization [facility] Address [address] [place] [address] Care Team Providers Care Tool Dispatcher Name Role Phone Susie CHADWICK, Ronaldo Primary Care Provider Josefina Brandon [phone] Encounters Encounter Location Date Provider Diagnosis [address] [address] 11/12/2023 Josefina Hitchcock Plan Of Treatment No Information Progress Notes * JASON LiviernDOB: [birth year] (49 yo F)Acc No.[id number]:11/12/2023 Progress Notes Patient: Jet WAGONER Provider: Flores Hitchcock DPM :1975 A ge:48 Y S ex:Female Date:11/12/2023 [address] [facility] Pcp:Ronaldo Richards MD Subjective: * Chief Complaints: * * Medical History: Objective: * Vitals: Assessment: Plan: * Treatment: * Images: * The named appointment provid er may or may not be the originator of this progress note, and it is not deemed complete until electronically signed by the appointment provider. Sign off status: Pending * Provider: Flores Hitchcock DPM Date: 11/12/2023 Generated for Printi ng/Faxing/eTransmitting on: 0 04/29/2025 03:54 PM EDT
[2025-04-29 15:22] LABS: MANUAL DIFF FLAG NO
[2025-04-29 15:56] LABS: Hematocrit 40.4 % (37.0-47.0); Hemoglobin 14.1 g/dl (12.0-16.0); Imm Gran Abs Auto 0.02 X10*3/uL (0.00-0.03); Imm Gran Pct Auto 0.3 % (0.0-0.4); Lymphocytes Absolute Auto 2.0 X10*3/uL (1.2-4.9); Mean Corpuscular HGB Conc 34.9 g/dl (31.0-35.0); Mean Corpuscular Hemoglobin 32.3 pg (27.0-33.0); Mean Corpuscular Volume 92.4 fL (80.0-98.0); NRBC Abs Auto 0.000 X10*3/uL (0.0-0.012); NRBC Pct Auto 0.0 /100WBC (0.0-0.2); Platelet Count 239 X10*3/uL (160-400); Red Blood Count 4.37 X10*6/uL (4.20-5.50); White Blood Count 6.3 X10*3/uL (4.8-10.8)
[2025-04-29 16:32] LABS: Alanine Aminotransferase 13 U/L (0-31); Albumin Level 4.4 g/dL (3.5-5.0); Alkaline Phosphatase 48 U/L (39-117); Anion Gap 10 (12-20); Aspartate Amino Transferase 20 U/L (5-31); Blood Urea Nitrogen 14 mg/dL (9-16); Calcium 9.0 mg/dL (8.4-10.2); Carbon Dioxide 27 mmol/L (22-29); Chloride 108 mmol/L (96-108); Estimated Glomerular Filt Rate > 60; Potassium 4.4 mmol/L (3.3-5.1); Sodium 141 mmol/L (135-145); Total Protein 6.8 g/dL (6.5-8.0)
[2025-04-30 04:02] LABS: HBS Num1 223.53 mIU/mL (0-7.99); HBc Num1 0.04 S/CO (0.00-0.79); HBsAGNum1 0.32 S/CO (0.00-0.99); Hepatitis A Antibody IgM 0.11 Index (0-0.79); Hepatitis B Surface Antigen Negative (Negative); ~HepC Num1 0.09 S/CO (0.00-0.79); ~Hepatitis A Antibody IgM Nonreactive (Nonreactive); ~Hepatitis B Surface Antibody REACTIVE (Nonreactive); ~Hepatitis C Antibody Nonreactive (Nonreactive)
[2025-05-02 13:54] LABS: TS Negative Control Passed; TS Panel A 0; TS Panel B 0; TS Positive Control Passed; TSpotTB Negative (Negative)
== END 2025-04-29 15:12 | disposition home or self-care (01) ==
LOC: HO.LAB 15:11
PROVIDERS: PCP Internal Medicine; Visit Provider Student in an Organized Health Care Education/Training Program
DX: Z11.59 Encounter for screening for other viral diseases (principal); Z11.1 Encounter for screening for respiratory tuberculosis; L40.50 Arthropathic psoriasis, unspecified; Z79.620 Long term (current) use of immunosuppressive biologic
CPT/HCPCS: 36415; 80053; 85025; 85652; 86140; 86481; 86704; 86706; 86709; 86803; 87340